=== PATIENT | male | born 1995 | race African-American/Black ===

== ENCOUNTER 2016-12-25 20:23 | Emergency (ER) | payer SELFPAY | END 2016-12-25 21:18 | disposition home or self-care (01) | LOC: D.ER 20:23 | DX: K02.9 Dental caries, unspecified (principal) ==

== ENCOUNTER 2016-12-31 23:29 | Emergency (ER) | payer SELFPAY ==
[2017-01-01 00:25] LABS: APPEARANCE CLEAR (CLEAR); BILIRUBIN NEGATIVE (NEGATIVE); COLOR YELLOW (YELLOW); GLUCOSE NEGATIVE (NEGATIVE); KETONE NEGATIVE (NEGATIVE); LEUKOCYTE ESTERASE TRACE (NEGATIVE); NITRITE NEGATIVE (NEGATIVE); PROTEIN NEGATIVE (NEGATIVE); SPECIFIC GRAVITY 1.025 (1.005-1.020); UROBILINOGEN NORMAL (NORMAL)
[2017-01-01 00:55] LABS: BACTERIA FEW /hpf (NONE SEEN); EPITHELIAL CELLS OCC /hpf (0-5); GRANULAR CAST RARE /lpf (NONE SEEN); HYALINE CAST OCC /lpf (NONE SEEN); MUCUS >1+ /lpf (NONE SEEN); RED CELLS - URINE 0-5 /hpf (0-5); WHITE CELLS - URINE 0-5 /hpf (0-5)
[2017-01-01 01:23] LABS: BASOPHILS 0.1 % (0-2); EOSINOPHILS 1.1 % (0-7); HEMATOCRIT 46.9 % (42.0-54.0); HEMOGLOBIN 15.3 g/dL (13.5-17.5); IMMATURE GRANULOCYTES 0.1 % (0-5); LYMPHOCYTES 24.5 % (15-50); MCH 23.4 pg (26.0-34.0); MCHC 32.6 g/dL (31.0-37.0); MCV 71.6 fL (80.0-100.0); MEAN PLATELET VOLUME 10.6 fL (7.4-10.4); MONOCYTES 6.9 % (2-11); NEUTROPHILS 67.3 % (40-80); PLATELET COUNT 263 10x3/uL (130-400); RDW 14.3 % (11.5-14.5); WBC 7.9 10x3/uL (4.8-10.8)
[2017-01-01 01:28] LABS: RBC 6.55 10x6/uL (4.20-6.10)
[2017-01-01 01:37] LABS: ALBUMIN 4.1 g/dL (3.4-5.0); ALKALINE PHOSPHATASE 86 U/L (46-116); ALT (SGPT) 20 U/L (10-68); BILIRUBIN - TOTAL 0.69 mg/dL (0.2-1.3); CALC OSMOLALITY 279 mosm/kg (275-300); CALCIUM 9.9 mg/dL (8.5-10.1); CARBON DIOXIDE 32.2 mmol/L (21.0-32.0); CHLORIDE - SERUM 101 mmol/L (98-107); GLUCOSE 106 mg/dL (74-106); POTASSIUM - SERUM 3.6 mmol/L (3.5-5.1); PROTEIN - SERUM 8.3 g/dL (6.4-8.2); SODIUM 141 mmol/L (136-145); UREA NITROGEN 11 mg/dL (7-18); eGFR NON AFRICAN AMERICAN > 90 mL/min (90-120)
== END 2017-01-01 01:55 | disposition home or self-care (01) ==
LOC: D.ER 23:29
PROVIDERS: Emergency Medicine
DX: R11.2 Nausea with vomiting, unspecified (principal); R10.9 Unspecified abdominal pain

== ENCOUNTER 2017-03-05 16:49 | Emergency (ER) | payer SELFPAY | END 2017-03-05 18:48 | disposition home or self-care (01) | LOC: D.ER 16:49 | DX: K02.9 Dental caries, unspecified (principal) ==

== ENCOUNTER 2017-05-17 06:18 | Emergency (ER) | payer SELFPAY | END 2017-05-17 09:00 | disposition home or self-care (01) | LOC: D.ER 06:18 | DX: S20.219A Contusion of unspecified front wall of thorax, initial encounter (principal); S40.012A Contusion of left shoulder, initial encounter; V43.62XA Car passenger injured in collision with other type car in traffic accident, initial encounter; Y93.89 Activity, other specified; Y92.410 Unspecified street and highway as the place of occurrence of the external cause ==

== ENCOUNTER 2018-09-23 23:12 | Inpatient (IN) | payer SELFPAY ==
[~2018-09-23] VITALS: Ht 177.8 cm; Wt 75.9 kg
--- NOTE | ~2018-09-23 | OP ---
PATIENT NAME: GUNJAN PICHARDO MEDICAL RECORD: [id number] :[birth year] LOCATION:[id number] ADMISSION DATE:09/24/18 SURGEON: JAVIER HUTCHINS MD DATE OF OPERATION: 09/24/2018 PREOPERATIVE DIAGNOSIS: Acute appendicitis with localized peritonitis. POSTOPERATIVE DIAGNOSIS: Acute appendicitis with localized peritonitis. PROCEDURE: Laparoscopic appendectomy. SURGEON: Javier Hutchins MD EDGE BONDER: Tereza Cullen APRN REPORT OF PROCEDURE: The patient's abdomen was prepped and draped in sterile fashion. A cutdown was made on the superior aspect of the umbilicus, 0 Vicryls were placed in the fascia bilaterally and the fascia was incised with 15-blade. I then bluntly entered the peritoneal cavity and placed a 12-mm José port. Under direct visualization, a 5-mm trocar was placed in the left lower quadrant and another was placed in the suprapubic region. The patient's appendix was found to be markedly inflamed with no signs of perforation or abscess formation. A window was made at the base of the appendix and the mesoappendix, and the mesoappendix was transected with a 45 white load Endo-NHAN stapler. The appendix was then transected with a 45 blue load Endo-NHAN stapler. The appendix was placed into an Endo Catch bag. We inspected the staple lines and saw there was no sign of any leakage or bleeding. At this point, we irrigated out the abdomen. The ports and insufflation were then removed and the appendix was taken out through the umbilicus. The umbilical fascia was closed with interrupted 0 Vicryls times 3. The wounds were irrigated out with normal saline and infused with 10 mL of 0.25% Marcaine with epinephrine. The skin incisions were all closed with subcutaneous 5-0 Monocryl and dressed appropriately. COMPLICATIONS: None. CONDITION: Stable. ANESTHESIA: General endotracheal and local. BLOOD LOSS: Minimal. TRANSINT:[id number] Voice Confirmation ID: [id number] DOCUMENT ID: [id number] JAVIER HUTCHINS MD CC: [id number] DICTATION DATE: 09/24/18 1309 [place] BI ARCHITECT: 09/24/18 1507 ADM IN [facility] [facility] [id number] [place] [address]
[2018-09-23 23:32] LABS: BASOPHILS 0.1 % (0-2); EOSINOPHILS 1.2 % (0-7); HEMATOCRIT 45.2 % (42.0-54.0); HEMOGLOBIN 14.9 g/dL (13.5-17.5); IMMATURE GRANULOCYTES 0.3 % (0-5); LYMPHOCYTES 14.4 % (15-50); MCH 23.5 pg (26.0-34.0); MCV 71.2 fL (80.0-100.0); MEAN PLATELET VOLUME 9.8 fL (7.4-10.4); MONOCYTES 4.9 % (2-11); NEUTROPHILS 79.1 % (40-80); PLATELET COUNT 259 10x3/uL (130-400); RBC 6.35 10x6/uL (4.20-6.10); WBC 15.3 10x3/uL (4.8-10.8)
[2018-09-23 23:49] LABS: ALBUMIN 4.3 g/dL (3.4-5.0); ALKALINE PHOSPHATASE 90 U/L (46-116); ALT (SGPT) 19 U/L (10-68); BILIRUBIN - TOTAL 0.42 mg/dL (0.2-1.3); CALC OSMOLALITY 279 mosm/kg (275-300); CALCIUM 9.2 mg/dL (8.5-10.1); CARBON DIOXIDE 28.1 mmol/L (21.0-32.0); CHLORIDE - SERUM 103 mmol/L (98-107); CREATININE - SERUM 0.9 mg/dL (0.6-1.3); GLUCOSE 125 mg/dL (74-106); POTASSIUM - SERUM 3.2 mmol/L (3.5-5.1); PROTEIN - SERUM 8.5 g/dL (6.4-8.2); SODIUM 141 mmol/L (136-145); UREA NITROGEN 8 mg/dL (7-18); eGFR NON AFRICAN AMERICAN > 90 mL/min (90-120)
[2018-09-23 23:52] LABS: AMYLASE - SERUM 66 U/L (25-115); LIPASE 124 U/L (73-393); TROPONIN-I < 0.017 ng/mL (0.000-0.060)
[2018-09-24 04:00] VITALS: BP 126/75
[2018-09-24 04:15] LABS: APPEARANCE CLEAR (CLEAR); BILIRUBIN NEGATIVE (NEGATIVE); COLOR YELLOW (YELLOW); GLUCOSE NEGATIVE (NEGATIVE); KETONE NEGATIVE (NEGATIVE); NITRITE NEGATIVE (NEGATIVE); PROTEIN NEGATIVE (NEGATIVE); UROBILINOGEN NORMAL (NORMAL)
[2018-09-24 05:07] VITALS: BP 126/75; BMI 24.0
[2018-09-24 08:14] VITALS: Ht 177.8 cm; Wt 75.9 kg
--- NOTE | 2018-09-24 10:36 | NUR ---
ALERT AND ORIENTED WITH POSITIVE MCBRUNEY SIGN MS AND ZOFRAN GIVEN PER ORDER FOR PAIN AND NAUSEA AT 8AM AND EFFECTIVE. CONSENT SIGNED FOR SUGERY WITH BATH GIVEN. ENCOURAGED TO USE CALL LIGHT FOR ASSIST.
--- NOTE | 2018-09-24 10:56 | NUR ---
PT. LEFT FOR SURGERY AND STABLE AT THIS TIME.
--- NOTE | 2018-09-24 11:42 | MORECARE ---
CASE MANAGEMENT DISCHARGE SUMMARY PATIENT: GUNJAN PICHARDO UNIT: [id number] ADM DATE: 09/24/18 AGE: 23 : [birth year] SEX: M ROOM/BED: D.2213 AUTHOR: AGGIE ESTRADA PHYSICIAN: REFERRING PHYSICIAN: АЛЕКСАНДР HUTCHINS MD DATE OF SERVICE: 09/24/18 Discharge Plan Patient Name: GUNJAN PICHARDO Facility: [facility]:[place] : 1995 Planned Disposition: Anticipated Discharge Date: Discharge Date: Expected LOS: Initial Reviewer: [email or web address] Initial Review Date: 09/24/2018 Generated: 09/24/18 12:42 pm Comments DCP- Discharge Planning Updated by [email or web address]: Carolee Upton on 09/24/18 10:[address] ATTEMPTED TO SEE PATIENT, BUT HE WAS IN SURGERY WILL TRY AGAIN AT A LATER TIME Patient Name: GUNJAN PICHARDO Page [id number] at 1142 All edits/amendments must be made on the electronic document DICTATION DATE: 09/24/18 1142 ACTUARIAL DIRECTOR: JONNY 09/24/18 1142 RPT#: [id number] DC DATE: STATUS: ADM IN [facility] [address] [place] [address] END OF REPORT
[2018-09-24] MEDS ORDERED: HYDROCODON-ACE1 EA10 PO (13:06)
[2018-09-24 14:02] VITALS: BP 139/85
--- NOTE | 2018-09-24 14:12 | NUR ---
PT. RETURNED TO ROOM UP VOIDING IN BATHROOM WITH SBA. NO PAIN NOTED AT THIS TIME WITH DRESSING INTACT TO ABDOMEN.. FAMILY PRESENT. ENCOURAGED TO USE CALL LIGHT FOR ASSSIT.
[2018-09-24 15:50] VITALS: BP 122/83
--- NOTE | 2018-09-24 17:00 | NUR ---
PT DISCHARGED UNDER CARE OF FRIEND. VERBALIZED UNDERSTANDING OF DISCHARGE INSTRUCTIONS.STABLE AT TIME OF DISCHARGE.
--- NOTE | 2018-09-27 10:36 | MORECARE ---
CASE MANAGEMENT DISCHARGE SUMMARY PATIENT: GUNJAN PICHARDO UNIT: [id number] ADM DATE: 09/24/18 AGE: 23 : [birth year] SEX: M ROOM/BED: D.2213 AUTHOR: AGGIE ESTRADA PHYSICIAN: REFERRING PHYSICIAN: АЛЕКСАНДР HUTCHINS MD DATE OF SERVICE: 09/27/18 Discharge Plan Patient Name: GUNJAN PICHARDO [facility] [facility] 1995 Planned Disposition: Anticipated Discharge Date: Discharge Date: 09/24/2018 Expected LOS: Initial Reviewer: [email or web address] Initial Review Date: 09/24/2018 Generated: 09/27/18 11:36 am Comments DCP- Discharge Planning Updated by [email or web address]: Carolee Upton on 09/24/18 10:[address] ATTEMPTED TO SEE PATIENT, BUT HE WAS IN SURGERY WILL TRY AGAIN AT A LATER TIME Last DP export: 09/24/18 10:42 am Patient Name: GUNJAN PICHARDO Page [phone] at 1036 All edits/amendments must be made on the electronic document DICTATION DATE: 09/27/18 1036 INTERVENTIONAL PHYSICIAN: JONNY 09/27/18 1036 RPT#: [id number] DC DATE:09/24/18 STATUS: DIS IN [facility] [address] [place] [address] END OF REPORT
== END 2018-09-24 17:02 | disposition home or self-care (01) | DRG 343 ==
LOC: D.ER 23:12 → D.MS 09-24 03:35 → D.EDHOLD 09-24 03:35 → D.MS 09-24 03:50
PROVIDERS: Family Medicine; ADMIT Surgery; ATTEND Surgery
PROC: 0DTJ4ZZ Resection of Appendix, Percutaneous Endoscopic Approach (ICD-10-PCS; principal; 2018-09-24 12:30)
DX: K35.30 Acute appendicitis with localized peritonitis, without perforation or gangrene (principal)

== ENCOUNTER 2019-08-01 13:17 | Emergency (ER) | payer SELFPAY ==
[~2019-08-01] VITALS: Ht 177.8 cm; Wt 80.1 kg
[~2019-08-01 13:17] MED LIST: HYDROCODON-ACE1 EA10 PO
[2019-08-01 13:21] VITALS: Ht 177.8 cm; Wt 80.1 kg
[2019-08-01] MEDS ORDERED: KEFLEX500 MG PO (13:46)
[2019-08-01 15:04] VITALS: BP 118/63
== END 2019-08-01 15:06 | disposition home or self-care (01) ==
LOC: D.ER 13:17
DX: K04.7 Periapical abscess without sinus (principal)

== ENCOUNTER 2020-02-23 16:19 | Emergency (ER) | payer OTHER ==
[~2020-02-23] VITALS: Ht 177.8 cm; Wt 78.2 kg
[~2020-02-23 16:19] MED LIST changes: +KEFLEX500 MG PO
[2020-02-23 16:34] VITALS: BP 130/85; Ht 177.8 cm; Wt 78.2 kg
[2020-02-23 17:24] LABS: BASOPHILS 0.2 % (0-2); EOSINOPHILS 2.4 % (0-7); HEMATOCRIT 50.2 % (42.0-54.0); HEMOGLOBIN 16.4 g/dL (13.5-17.5); LYMPHOCYTES 23.6 % (15-50); MCH 23.6 pg (26.0-34.0); MCHC 32.7 g/dL (31.0-37.0); MCV 72.3 fL (80.0-100.0); MEAN PLATELET VOLUME 10.1 fL (7.4-10.4); MONOCYTES 11.1 % (2-11); NEUTROPHILS 62.7 % (40-80); PLATELET COUNT 277 10x3/uL (130-400); RDW 14.2 % (11.5-14.5); WBC 6.2 10x3/uL (4.8-10.8)
[2020-02-23 17:28] LABS: RBC 6.94 10x6/uL (4.20-6.10)
[2020-02-23 17:36] LABS: CALC OSMOLALITY 275 mosm/kg (275-300); CHLORIDE - SERUM 102 mmol/L (98-107); GLUCOSE 88 mg/dL (74-106); POTASSIUM - SERUM 4.4 mmol/L (3.5-5.1); SODIUM 138 mmol/L (136-145); UREA NITROGEN 14 mg/dL (7-18); eGFR NON AFRICAN AMERICAN > 90 mL/min (90-120)
[2020-02-23 17:43] LABS: ALBUMIN 4.3 g/dL (3.4-5.0); ALKALINE PHOSPHATASE 91 U/L (30-120); ALT (SGPT) 26 U/L (10-68); BILIRUBIN - TOTAL 0.94 mg/dL (0.2-1.3); PROTEIN - SERUM 8.5 g/dL (6.4-8.2)
[2020-02-24] MEDS ORDERED: ZOFRAN ODT4 MG/UDTAB PO (06:56)
== END 2020-02-23 19:11 | disposition left against medical advice (07) ==
LOC: D.ER 16:19
PROVIDERS: Family Medicine
DX: R11.2 Nausea with vomiting, unspecified (principal); Z53.21 Procedure and treatment not carried out due to patient leaving prior to being seen by health care provider

== ENCOUNTER 2020-02-24 05:15 | Emergency (ER) | payer OTHER ==
[~2020-02-24] VITALS: Ht 177.8 cm; Wt 78.2 kg
[2020-02-24 05:20] VITALS: Ht 177.8 cm; Wt 78.2 kg
[2020-02-24 06:22] LABS: BILIRUBIN NEGATIVE (NEGATIVE); GLUCOSE NEGATIVE (NEGATIVE); KETONE LARGE mg/dL (NEGATIVE); NITRITE NEGATIVE (NEGATIVE); UROBILINOGEN NORMAL (NORMAL)
[2020-02-24] MEDS ORDERED: ZOFRAN ODT4 MG/UDTAB PO (06:56)
[2020-02-24 07:15] LABS: HEMATOCRIT 44.2 % (42.0-54.0); HEMOGLOBIN 14.4 g/dL (13.5-17.5); MCH 23.5 pg (26.0-34.0); MCHC 32.6 g/dL (31.0-37.0); MEAN PLATELET VOLUME 9.9 fL (7.4-10.4); PLATELET COUNT 265 10x3/uL (130-400); RBC 6.14 10x6/uL (4.20-6.10); RDW 14.1 % (11.5-14.5); WBC 6.7 10x3/uL (4.8-10.8)
[2020-02-24 07:22] LABS: CALC OSMOLALITY 272 mosm/kg (275-300); CALCIUM 8.9 mg/dL (8.5-10.1); CARBON DIOXIDE 24.7 mmol/L (21.0-32.0); CHLORIDE - SERUM 103 mmol/L (98-107); CREATININE - SERUM 0.9 mg/dL (0.6-1.3); GLUCOSE 101 mg/dL (74-106); POTASSIUM - SERUM 4.4 mmol/L (3.5-5.1); SODIUM 137 mmol/L (136-145); UREA NITROGEN 11 mg/dL (7-18); eGFR NON AFRICAN AMERICAN > 90 mL/min (90-120)
[2020-02-24 07:27] LABS: ALBUMIN 3.7 g/dL (3.4-5.0); ALKALINE PHOSPHATASE 77 U/L (30-120); ALT (SGPT) 22 U/L (10-68); BILIRUBIN - TOTAL 0.82 mg/dL (0.2-1.3); LIPASE 99 U/L (73-393); PROTEIN - SERUM 7.3 g/dL (6.4-8.2)
[2020-02-24 07:32] VITALS: BP 128/68
[2020-02-24 07:56] LABS: EOSINOPHILS 3 % (0-7); LYMPHOCYTES 15 % (15-50); MONOCYTES 1 % (2-11); NEUTROPHILS 81 % (40-80); PLATELET ESTIMATE NORMAL; TARGET CELLS OCC
== END 2020-02-24 07:33 | disposition home or self-care (01) ==
LOC: D.ER 05:15
PROVIDERS: Family Medicine
DX: R11.2 Nausea with vomiting, unspecified (principal)